=== PATIENT | male | born 1970 | race Caucasian/White ===

== ENCOUNTER 2018-05-08 03:26 | Emergency (ER) | payer OTHER ==
[~2018-05-08] VITALS: Ht 175.3 cm; Wt 72.0 kg
[~2018-05-08 03:26] MED LIST: FLEXERIL PO; NO HOME MEDS; ULTRAM50 M1 PO
[2018-05-08] MEDS ORDERED: ACETIC ACID2 % OT (03:58)
[2018-05-08] MEDS ORDERED: AMOXICILLIN500 MG PO (03:58)
[2018-05-08 04:02] VITALS: BP 106/73
== END 2018-05-08 04:07 | disposition home or self-care (01) | DRG 153 ==
LOC: ED 03:26
DX: H66.92 Otitis media, unspecified, left ear (principal); H60.92 Unspecified otitis externa, left ear; H92.02 Otalgia, left ear; F17.210 Nicotine dependence, cigarettes, uncomplicated

== ENCOUNTER 2019-10-14 | Emergency (ER) | payer SELFPAY ==
[~2019-10-14] MED LIST changes: +ACETIC ACID2 % OT; +AMOXICILLIN500 MG PO
[2019-10-14] MEDS ORDERED: AUGMENTIN500TAB PO (01:52)
== END 2019-10-14 02:25 | disposition home or self-care (01) | DRG 605 ==
PROC: 0HQ1XZZ Repair Face Skin, External Approach (ICD-10-PCS; principal; 2019-10-14)
PROC: 0CQ4XZZ Repair Buccal Mucosa, External Approach (ICD-10-PCS; 2019-10-14)
DX: S01.81XA Laceration without foreign body of other part of head, initial encounter (principal); S01.512A Laceration without foreign body of oral cavity, initial encounter; W01.198A Fall on same level from slipping, tripping and stumbling with subsequent striking against other object, initial encounter; Y92.002 Bathroom of unspecified non-institutional (private) residence as the place of occurrence of the external cause; F17.210 Nicotine dependence, cigarettes, uncomplicated

== ENCOUNTER 2022-05-01 18:37 | Emergency (ER) | payer SELFPAY ==
[~2022-05-01] VITALS: Ht 175.3 cm; Wt 65.0 kg
[~2022-05-01 18:37] MED LIST changes: +AUGMENTIN500TAB PO
[2022-05-01 18:42] VITALS: BP 120/78
[2022-05-01 18:45] VITALS: BP 120/78
[2022-05-01 19:01] VITALS: BP 132/80
[2022-05-01 19:10] LABS: HEMOGLOBIN 13.3 g/dl (14.0-18.0); IMMATURE GRANULOCYTES 0.3 % (0.0-5.0); MEAN CELL VOLUME 99.5 fL CALC (80.0-100.0); MEAN CORPUSCULAR HGB 33.9 pG CALC (26.0-32.0); MEAN CORPUSCULAR HGB CONC 34.1 g/dL CAL (32.0-36.0); NEUT# 13.05 thou/uL (1.82-7.42); RED BLOOD COUNT 3.92 mill/uL (4.70-6.10); RED CELL DISTRI WIDTH 12.4 % (11.5-15.5)
[2022-05-01 19:15] VITALS: BP 127/77
[2022-05-01 19:52] LABS: URINE BLOOD DIPSTICK NEGATIVE (NEGATIVE); URINE GLUCOSE - DIPSTICK NEGATIVE (NEGATIVE); URINE KETONE 40 mg/dL (NEGATIVE); URINE LEUK ESTERASE NEGATIVE (NEGATIVE); URINE PROTEIN - DIPSTICK 30 mg/dL (NEG-TRACE); URINE SPECIFIC GRAVITY >=1.030
[2022-05-01 19:53] LABS: URINE BILIRUBIN - DIPSTICK MODERATE (NEGATIVE); URINE COLOR DK. YELLOW; URINE NITRITE - DIPSTICK POSITIVE (Negative)
[2022-05-01 20:02] LABS: URINE RBC 0-2 RBC/hpf (0-5)
[2022-05-01 20:03] LABS: URINE BACTERIA FEW hpf; URINE HYALINE CAST MANY lpf (NONE-RARE)
[2022-05-01 20:07] LABS: ALBUMIN 4.7 g/dL (3.2-5.0); ALKALINE PHOSPHATASE 51 u/l (38-126); ANION GAP 23 (6-22 (CALC)); BILIRUBIN, TOTAL 2.2 mg/dL (0.0-1.4); BUN 26 mg/dL (9-20); BUN/CREATININE RATIO 19 (12-20 (CALC)); CARBON DIOXIDE 19 mmol/l (22-30); CHLORIDE 87 mmol/l (95-108); CREATININE 1.3 mg/dL (0.7-1.3); GFR FOR AFR.AMER. > 60 ML/MIN (>=60 (CALC)); GFR OTHER RACES 58 ML/MIN (>=60 (CALC)); POTASSIUM 4.5 mmol/l (3.5-5.1); SGOT/AST 179 u/l (17-59); SODIUM 124 mmol/l (137-146); TOTAL PROTEIN 7.4 g/dL (6.3-8.2)
[2022-05-01 20:23] LABS: MYOGLOBIN 1246 ng/mL (0 - 121)
[2022-05-01 20:30] VITALS: BP 127/77
== END 2022-05-01 20:36 | disposition left against medical advice (07) | DRG 558 ==
LOC: ED 18:37
PROVIDERS: Emergency Medicine
DX: M62.82 Rhabdomyolysis (principal); L03.116 Cellulitis of left lower limb; L03.115 Cellulitis of right lower limb; X37.0XXA Hurricane, initial encounter; X38.XXXA Flood, initial encounter